=== PATIENT | male | born 1975 | race African-American/Black ===

== ENCOUNTER 2020-12-21 23:11 | Emergency (ER) | payer OTHER, SELFPAY ==
[2020-12-22 00:13] LABS: Band 6 % (5-11); Hemoglobin 13.2 g/dL (14.0-18.0); Lymphocytes 29 % (21-51); MDiff Complete? YES; Mean Corpuscular HGB CONC 31.1 g/dL (32.0-36.0); Mean Corpuscular Volume 86.9 fL (78.0-98.0); Mean Platelet Volume 10.1 fL (7.4-10.4); Monocytes 6 % (0-10); Neutrophil 59 % (42-75); Platelet Count 161 thou/uL (130-400); Platelet Morphology Comment Appears Adequate; RBC Distribution Width 12.9 % (11.5-14.5); RBC Morphology Normal; Red Blood Cell (RBC) Count 4.89 mill/uL (4.70-6.10); White Blood Cell (WBC) Count 4.3 thou/uL (4.8-10.8)
[2020-12-22 00:14] LABS: ALT (SGPT) 24 U/L (8-55); AST (SGOT) 28 U/L (5-34); Alkaline Phosphatase 41 U/L (40-110); Anion Gap 16 mmol/L (10-20); BUN (Urea Nitrogen) 16 mg/dL (8.9-20.6); Bilirubin, Total 0.9 mg/dL (0.2-1.2); Calc. Creatinine Clearance 0 mL/min (70-130); Calcium 8.9 mg/dL (7.8-10.44); Carbon Dioxide 21 mmol/L (22-29); Chloride 105 mmol/L (98-107); Globulin 3.2 g/dL (2.4-3.5); Glucose 156 mg/dL (70-105); Potassium 3.6 mmol/L (3.5-5.1); Protein, Total 7.2 g/dL (6.0-8.3); Sodium 138 mmol/L (136-145)
[2020-12-22 16:17] LABS: SARS-CoV-2 PCR by NAA DETECTED (NotDetected)
== END 2020-12-22 00:45 | disposition home or self-care (01) ==
LOC: NAV ERS 23:11
DX: U07.1 COVID-19 (principal)
CPT/HCPCS: 36415; 71045; 80053; 84484; 85025; 93005; U0003; U0005

== ENCOUNTER 2022-10-14 09:58 | Outpatient (CLI) | payer BC | END 2022-10-14 09:59 | disposition home or self-care (01) | LOC: NAV RAD 09:58 | PROVIDERS: ATTEND Nurse Practitioner Family | DX: M79.672 Pain in left foot (principal); M77.32 Calcaneal spur, left foot; M19.072 Primary osteoarthritis, left ankle and foot ==

== ENCOUNTER 2023-12-21 21:51 | Emergency (ER) | payer BC ==
[2023-12-21] MEDS ORDERED: Ibuprofen 800 MG TAB ONE (22:58)
== END 2023-12-21 23:12 | disposition home or self-care (01) ==
LOC: NAV ERS 21:51
DX: S20.219A Contusion of unspecified front wall of thorax, initial encounter (principal); S00.83XA Contusion of other part of head, initial encounter; M54.50 Low back pain, unspecified; Y04.8XXA Assault by other bodily force, initial encounter
CPT/HCPCS: 70450; 72125

== ENCOUNTER 2024-01-25 11:27 | Outpatient (CLI) | payer BC | END 2024-01-25 11:28 | disposition home or self-care (01) | LOC: NAV RAD 11:27 | PROVIDERS: ATTEND Nurse Practitioner Family | DX: M54.50 Low back pain, unspecified (principal) | CPT/HCPCS: 72100 ==